=== PATIENT | female | born 1975 | race Hispanic/Latino ===

== ENCOUNTER 2018-08-14 15:23 | Emergency (ER) | payer OTHER ==
[2018-08-14] MEDS ORDERED: GEODON IM ONE (15:34)
[2018-08-14 15:42] LABS: Hematocrit 42.2 % (30.3-42.9); Hemoglobin 14.1 gm/dl (10.1-14.3); Mean Corpuscular HGB Conc 33 % (30-34); Mean Corpuscular Hemoglobin 30 pg (28-32); Mean Corpuscular Volume 90 fl (79-97); Platelet Count 463 K/mm3 (140-440); Red Blood Count 4.71 M/mm3 (3.65-5.03); Red Cell Distribution Width 14.4 % (13.2-15.2)
[2018-08-14 15:45] LABS: INR 0.95 (0.87-1.13); Partial Thromboplastin Time 24.6 Sec. (24.2-36.6); Thrombin Time 16.1 Sec. (15.1-19.6)
[2018-08-14 15:54] LABS: Calcium 8.9 mg/dL (8.4-10.2)
--- NOTE | 2018-08-14 16:28 | Emergency Department Report ---
HPI - General Time Seen by Provider: 08/14/18 15:30 - HPI HPI: 43-year-old female presents to the emergency department with a complaint of altered mental status. The patient's eventually came to the emergency department and his bedside and says that she went to take a nap earlier today. He came home from work and found the patient making some loud abnormal sounds, "like she was talking on the phone", but she was all contracted and/or clenched up and she had urinated and defecated on herself. says that he then called EMS and she was unresponsive since that time. She has a past medical history of hypertension. He says that she has been under a lot of stress lately. She has no history of seizures, CVA, NV. No drug or alcohol abuse history. The patient is a poor historian. She is currently awake but confused and agitated and not redirectable. ED Past Medical Hx - Medications Home Medications: Home Medications Medication Instructions Recorded Confirmed Last Taken Type hydroCHLOROthiazide 25 mg PO DAILY 08/14/18 08/14/18 Unknown History [Hydrochlorothiazide] ED Review of Systems ROS: Stated complaint: CVA Other details as noted in HPI Comment: Unobtainable due to pts medical conditions Physical Exam - Physical Exam Physical Exam: GENERAL: Patient is awake but refused an ill-appearing. HENT: Normocephalic. Atraumatic. Patient has moist mucous membranes. EYES: Extraocular motions are intact. Pupils equal reactive to light bilaterally. NECK: Supple. Trachea is midline. CHEST/LUNGS: Clear to auscultation. There is no respiratory distress noted. HEART/CARDIOVASCULAR: Regular. There is no tachycardia. There is no murmur. ABDOMEN: Abdomen is soft, nontender. Patient has normal bowel sounds. There is no abdominal distention. SKIN: Skin is warm and dry. NEURO: Patient is awake but confused. She is agitated and not following any commands and is not redirectable. GCS of 13. Patient says her name and keeps asking to get up out of the gurney. There is no slurred speech. No obvious facial asymmetry. MUSCULOSKELETAL: There is no tenderness or deformity. There is no limitation range of motion. There is no evidence of acute injury. ED Course - Reevaluation(s) Reevaluation #1: 10/02/18 17:01 As soon as the patient arrived to the emergency department she has been confused and agitated. She is consistently trying to get up out of the gurney but appears unstable with concerned that she will fall and injure herself. However she is not really directable. For this reason the patient was given some Geodon so that appropriate medical evaluation could be done. The patient' s showed up to bedside and tried to be a calming influence but it was not enough to get the CT scan done of the head which is part of the delay to rule out CVA in this patient. The patient was then given Ativan and Benadryl and she appears to be more appropriately sedated so we will attempt to get a CT scan and EKG on this patient. Reevaluation #2: 08/14/18 17:34 Despite the Geodon, Benadryl and Ativan given, we were not successful in a CT scan of the head. There are a few images available in which the patient is not moving and this has been sent to radiology. However the patient continues to be agitated and altered. She has been given ketamine and potentially will receive some more Ativan and we will reattempt to get CT imaging of the head done. Reevaluation #3: 08/14/18 17:[address] scan of the head was enough for radiology to read it showing a subarachnoid hemorrhage, predominantly on the right but also a little on the left side. Patient has been given some ketamine and appears to be resting comfortably at this time. I will be starting to contact other facilities with neurosurgery and neurology capabilities for transfer. - Consultations Consultation #1: I spoke with Dr. Laura, neurosurgery at [facility], who says he is going to talk to the charge nurse and try and free up a bed so that they can accept this patient for transfer. In the meantime he is going to look at the CT scan of the head on regional PACs. If no bed is available, we will try [facility]. 08/14/18 18:14 08/14/18 18:31 [facility] is still working on opening up a bed and does not have one for transfer at this time so I'm going to contact [facility]. 08/14/18 18:52 The patient was accepted for transfer to [facility] by Dr. Barry , neurosurgery. I also spoke with the neuro sliver handler, Dr. Camacho, who has requested that the patient receive 1 g of Keppra and either 1 g of TXA or 5 g of Amicar. ED Medical Decision Making - Lab Data Result diagrams: 08/14/18 15:19 08/14/18 15:19 - EKG Data -: EKG Interpreted by Me EKG shows normal: sinus rhythm (PACs), axis, intervals, QRS complexes, ST-T waves Rate: normal - EKG Data When compared to previous EKG there are: previous EKG unavailable Interpretation: normal EKG - Radiology Data Radiology results: report reviewed PROCEDURE: CT head without contrast. TECHNIQUE: Computerized tomography of the head was performed without contrast material. HISTORY: Stroke symptoms. COMPARISON: No prior studies are available for comparison. FINDINGS: Image quality is limited because of severe motion artifact. The patient was extremely combative according to the technologist. The ventricles are normal in size. There are no definite mass lesions. There is fairly extensive high attenuation within sulci and basilar cisterns. This is predominantly on the right side. This represents acute subarachnoid hemorrhage. There are no obvious aneurysms visible. The calvarium appears intact. The mastoid air cells and paranasal sinuses are clear as far as visualized. IMPRESSION: Acute subarachnoid hemorrhage. Very limited study. Transcribed By: MRM Dictated By: SIDNEY SAGE MD Electronically Authenticated By: SIDNEY SAGE MD Signed Date/Time: 08/14/18 1736 - Medical Decision Making This patient presents with altered mental status after being found confused, covered in her own vomitus, defecating on herself and urinating on herself and mostly unresponsive. The patient became more awake but still confused. She presents very agitated trying to get off of the gurney and is not redirectable. I was immediately concerned that the patient needed a CT scan of the head to look for signs of a brain bleed but the differential also included seizure with postictal state, substance abuse versus others. The patient was awake but very agitated and we were unable to establish an IV or get the patient calm enough to complete a CT scan of the head, which was imperative. The patient was given 20 mg of Geodon without much change in her status. She was given 2 mg of Ativan IV and 25 mg of Benadryl. At this point the patient started to show some improvement of her agitation with the medication and a CT scan was attempted. The patient once again became agitated while in CT scan and therefore it ended up being a poor limited study. However there were multiple slices that were done without much motion artifact and it was enough for radiology to make a read that showed subarachnoid hemorrhage. Patient was given some ketamine so that IV could be established and we could try to replace her potassium, give some IV fluid. Per the consultation section, I spoke with [facility] and then eventually with [facility] and the patient was accepted to go to [facility]. The patient's was updated regarding all of the labs, imaging, diagnosis and need for transfer and he understands and agrees to the plan. The patient once again became agitated and pulled out her IVs. As transportation arrived, we placed another IV, gave Keppra and TXA, and the patient was given 1 more dose of ketamine for her transportation to the hospital. The patient remains as a GCS of 13 throughout most of her ED stay and as she is leaving. Vital signs remained stable. - Differential Diagnosis brain bleed, seizure, substance abuse, psychosis Critical Care Time: Yes Critical care time in (mins) excluding proc time.: 75 Critical care attestation.: If time is entered above; I have spent that time in minutes in the direct care of this critically ill patient, excluding procedure time. Critical care time was spent on this patient during her initial evaluation, multiple re-evaluations , ordering and interpretation of labs and imaging, ordering and administration of medications, discussion with the neurosurgeon at [facility], discussion with the neurosurgeon and neuro critical care physician at [facility], discussion with the patient's . Critical Care Time: 75 minutes ED Disposition Clinical Impression: Subarachnoid hemorrhage, Hypokalemia Altered mental status Qualifiers: Altered mental status type: unspecified Qualified Code(s): R41.82 - Altered mental status, unspecified Disposition: DC/TX-70 ANOTHER TYPE HLTHCARE Is pt being admited?: No Condition: Serious Referrals: PRIMARY CARE, [Primary Care Provider] - 3-5 Days Forms: Accompanied Note Time of Disposition: 20:44
[2018-08-14] MEDS ORDERED: ATIVAN IV ONE (16:33)
[2018-08-14] MEDS ORDERED: BENADRYL IV ONE (16:34)
[2018-08-14 16:36] LABS: Basophils % (Manual) 0 % (0.0-1.8); Total Cells Counted 100
[2018-08-14] MEDS ORDERED: ATIVAN ONE (16:38)
[2018-08-14 16:48] LABS: Platelet Estimate Consistent w Auto; RBC Morphology Normal
[2018-08-14] MEDS ORDERED: KCL 10MEQ/100ML 10 MEQ/100 ML BAG IV SCH (17:00)
[2018-08-14] MEDS ORDERED: KETAMINE HCL IV ONE ×2 (17:28→19:29)
[2018-08-14] MEDS ORDERED: KETALAR IV ONE ×2 (17:30)
--- NOTE | 2018-08-14 17:37 | Cat Scan Report ---
FINAL REPORT PROCEDURE: CT head without contrast. TECHNIQUE: Computerized tomography of the head was performed without contrast material. HISTORY: Stroke symptoms. COMPARISON: No prior studies are available for comparison. FINDINGS: Image quality is limited because of severe motion artifact. The patient was extremely combative according to the technologist. The ventricles are normal in size. There are no definite mass lesions. There is fairly extensive high attenuation within sulci and basilar cisterns. This is predominantly on the right side. This represents acute subarachnoid hemorrhage. There are no obvious aneurysms visible. The calvarium appears intact. The mastoid air cells and paranasal sinuses are clear as far as visualized. IMPRESSION: Acute subarachnoid hemorrhage. Very limited study.
[2018-08-14 18:24] LABS: Bilirubin,Urine NEG (Negative); Blood,Urine SM (Negative); Color,Urine Straw (Yellow); Mucus,Urine FEW /HPF; Protein,Urine <15 mg/dL mg/dL (Negative); Urobilinogen,Urine < 2.0 mg/dL (<2.0)
[2018-08-14] MEDS ORDERED: NACL 0.9% 1000 ML 1,000 ML ONE (18:33)
[2018-08-14 18:34] LABS: Amphetamine Screen,Urine PRESUMPTIVE NEGATIVE; Benzodiazepines Screen,Urine PRESUMPTIVE NEGATIVE; Cocaine Screen,Urine PRESUMPTIVE NEGATIVE; Methadone Screen,Urine PRESUMPTIVE NEGATIVE; Opiate Screen,Urine PRESUMPTIVE NEGATIVE
[2018-08-14] MEDS ORDERED: KEPPRA 1,000 MG/NS 0.75% 100ML 1,000 MG/100 ML BAG IV ONE (18:42)
[2018-08-14] MEDS ORDERED: AMICAR 5,000 MG in NACL 0.9% 100 ML IV ONE (18:43)
[2018-08-14 18:48] LABS: Cannabinoid Screen,Urine PRESUMPTIVE POSITIVE
[2018-08-14 18:49] VITALS: BP 116/76
[2018-08-14] MEDS ORDERED: TRANEXAMIC ACID 1,000 MG in NACL 0.9% 100 ML IV NR (19:00)
== END 2018-08-14 19:50 | disposition other institution (70) ==
LOC: ED 15:23
DX: S06.6X0A Traumatic subarachnoid hemorrhage without loss of consciousness, initial encounter (principal); E87.6 Hypokalemia; I10 Essential (primary) hypertension; X58.XXXA Exposure to other specified factors, initial encounter; Y93.89 Activity, other specified; Y92.89 Other specified places as the place of occurrence of the external cause; Y99.8 Other external cause status
CPT/HCPCS: 36415; 70450; 80053; 80307; 81001; 84484; 84702; 85007; 85025; 85610; 85670; 85730; 86850; 86900; 86901; 93005; 93010; 96365; 96372; 96375; 96376; 99291; G0480; J1200; J1953; J2060; J3480; J3486; J7030; 80320

== ENCOUNTER 2018-12-18 12:15 | Emergency (ER) | payer SELFPAY ==
[2018-12-18 12:26] VITALS: BP 171/88
--- NOTE | 2018-12-18 12:34 | Emergency Department Report ---
Blank Doc - Documentation Documentation: 43 yo female pmh of HTN controlled with med presents with elevated BP started today while at work and was sent here from work. Denies cp,sob,dizziness,wisdom hx of Anuerysm last year august. EXAM: no acute distress no neuro deficit PLAN: fast track eval
--- NOTE | 2018-12-18 15:34 | Emergency Department Report ---
ED General Adult HPI - General Chief complaint: High BP Stated complaint: HBP/SOB Time Seen by Provider: 12/18/18 12:26 Source: patient Mode of arrival: Ambulatory Limitations: No Limitations - History of Present Illness Initial comments: She presents to the emergency department with a chief complaint elevated blood pressure. Patient states her blood pressure work was 150/102 and it was 177/88 in the emergency department. Patient denies any headache, chest pain, numbness, facial droop, slurred speech but is concerned because she is recovering from an aneurysm that happened in August. The patient is currently on hydrochlorothiazide which she takes daily. -: Gradual Severity scale (0 -10): 0 Improves with: none Worsens with: none Associated Symptoms: denies other symptoms Treatments Prior to Arrival: none - Related Data Home Medications Medication Instructions Recorded Confirmed Last Taken Apixaban [Eliquis] 5 mg PO BID 10/08/18 10/08/18 10/05/18 Cilostazol [Pletal] 100 mg PO BID 10/08/18 10/08/18 Unknown Metoprolol [Lopressor] 12.5 mg PO BID 10/08/18 10/08/18 10/05/18 Pravastatin Sodium [Pravachol] 40 mg PO HS 10/08/18 10/08/18 10/07/18 hydroCHLOROthiazide [HCTZ] 25 mg PO QDAY 10/08/18 10/08/18 10/08/18 levETIRAcetam [Keppra TAB] 1,000 mg PO Q12H 10/08/18 10/08/18 Unknown oxyCODONE [Roxicodone] 5 mg PO Q4HR PRN 10/08/18 10/08/18 Unknown Previous Rx's Medication Instructions Recorded Last Taken Type Amlodipine Besylate [Norvasc] 5 mg PO DAILY #30 tablet 12/18/18 Unknown Rx Allergies Allergy/AdvReac Type Severity Reaction Status Date / Time No Known Allergies Allergy Verified 12/18/18 12:24 ED Review of Systems ROS: Stated complaint: HBP/SOB Other details as noted in HPI Comment: All other systems reviewed and negative Constitutional: denies: chills, fever Eyes: denies: eye pain, eye discharge, vision change ENT: denies: ear pain, throat pain Respiratory: denies: cough, shortness of breath, wheezing Cardiovascular: denies: chest pain, palpitations Endocrine: no symptoms reported Gastrointestinal: denies: abdominal pain, nausea, diarrhea Genitourinary: denies: urgency, dysuria, discharge Musculoskeletal: denies: back pain, joint swelling, arthralgia Skin: denies: rash, lesions Neurological: denies: headache, weakness, paresthesias Psychiatric: denies: anxiety, depression Hematological/Lymphatic: denies: easy bleeding, easy bruising ED Past Medical Hx - Past Medical History Previous Medical History?: Yes Hx Hypertension: Yes Additional medical history: Acute Resp Failure r/t hypoxia,hypercapnia,cerebral edema,cerebrel salt-wasting,also Non-traumatic subarachoid herrohage r/t aneursym, RT DVT,TAK[place]SUBO CARDIOMYOPATHY- 08/14/2018, AFIB - Surgical History Past Surgical History?: Yes Additional Surgical History: BRAIN SURGERY- 08/14/2018 - Social History Smoking Status: Never Smoker Substance Use Type: None - Medications Home Medications: Home Medications Medication Instructions Recorded Confirmed Last Taken Type Apixaban [Eliquis] 5 mg PO BID 10/08/18 10/08/18 10/05/18 History Cilostazol [Pletal] 100 mg PO BID 10/08/18 10/08/18 Unknown History Metoprolol [Lopressor] 12.5 mg PO BID 10/08/18 10/08/18 10/05/18 History Pravastatin Sodium [Pravachol] 40 mg PO HS 10/08/18 10/08/18 10/07/18 History hydroCHLOROthiazide [HCTZ] 25 mg PO QDAY 10/08/18 10/08/18 10/08/18 History levETIRAcetam [Keppra TAB] 1,000 mg PO Q12H 10/08/18 10/08/18 Unknown History oxyCODONE [Roxicodone] 5 mg PO Q4HR PRN 10/08/18 10/08/18 Unknown History Amlodipine Besylate [Norvasc] 5 mg PO DAILY #30 tablet 12/18/18 Unknown Rx ED Physical Exam - General Limitations: No Limitations General appearance: alert, in no apparent distress - Head Head exam: Present: atraumatic, normocephalic - Eye Eye exam: Present: normal appearance, PERRL, EOMI - ENT ENT exam: Present: mucous membranes moist - Neck Neck exam: Present: normal inspection - Respiratory Respiratory exam: Present: normal lung sounds bilaterally. Absent: respiratory distress, wheezes, rales - Cardiovascular Cardiovascular Exam: Present: regular rate, normal rhythm. Absent: systolic murmur, diastolic murmur, rubs, gallop - GI/Abdominal GI/Abdominal exam: Present: soft, normal bowel sounds. Absent: distended, tenderness - Extremities Exam Extremities exam: Present: normal inspection - Back Exam Back exam: Present: normal inspection - Neurological Exam Neurological exam: Present: alert, oriented X3, CN II-XII intact. Absent: motor sensory deficit - Psychiatric Psychiatric exam: Present: normal affect, normal mood - Skin Skin exam: Present: warm, dry, intact, normal color. Absent: rash ED Course Vital Signs 12/18/18 12:24 Temperature 98.2 F Pulse Rate 79 Respiratory 16 Rate Blood Pressure 171/88 O2 Sat by Pulse 100 Oximetry ED Medical Decision Making - Medical Decision Making Discussed plan of care with patient Discussed with patient that she should take the Norvasc and hydrochlorothiazide and continue to monitor her pressures Critical care attestation.: If time is entered above; I have spent that time in minutes in the direct care of this critically ill patient, excluding procedure time. ED Disposition Clinical Impression: Hypertension Disposition: DC-01 TO HOME OR SELFCARE Is pt being admited?: No Does the pt Need Aspirin: No Condition: Stable Instructions: Hypertension (ED) Additional Instructions: return if worse Prescriptions: Amlodipine Besylate [Norvasc] 5 mg PO DAILY #30 tablet Referrals: KE YOU MD [Primary Care Provider] - 3-5 Days Time of Disposition: 15:34
== END 2018-12-18 15:43 | disposition home or self-care (01) ==
LOC: ED 12:15
DX: I10 Essential (primary) hypertension (principal)
CPT/HCPCS: 99281

== ENCOUNTER 2019-01-04 20:43 | Emergency (ER) | payer MEDICAID, OTHER ==
[2019-01-04] MEDS ORDERED: ASPIRIN PO ONE (21:46)
[2019-01-04 22:16] LABS: Basophils # (Auto) 0.1 K/mm3 (0.0-0.1); Basophils % (Auto) 0.9 % (0.0-1.8); Eosinophils # (Auto) 0.2 K/mm3 (0.0-0.4); Eosinophils % (Auto) 3.4 % (0.0-4.3); Hematocrit 34.9 % (30.3-42.9); Hemoglobin 11.8 gm/dl (10.1-14.3); Lymphocytes # (Auto) 2.2 K/mm3 (1.2-5.4); Lymphocytes % (Auto) 37.4 % (13.4-35.0); Mean Corpuscular HGB Conc 34 % (30-34); Mean Corpuscular Volume 83 fl (79-97); Monocytes # (Auto) 0.3 K/mm3 (0.0-0.8); Monocytes % (Auto) 5.8 % (0.0-7.3); Platelet Count 429 K/mm3 (140-440); Red Blood Count 4.22 M/mm3 (3.65-5.03); Red Cell Distribution Width 15.8 % (13.2-15.2)
[2019-01-04 22:55] LABS: BUN/Creatinine Ratio 12; Blood Urea Nitrogen 7 mg/dL (7-17); Calcium 9.7 mg/dL (8.4-10.2); Hemolysis Index 2
[2019-01-04] MEDS ORDERED: K-DUR PO ONE (23:19)
--- NOTE | 2019-01-04 23:21 | Emergency Department Report ---
HPI - General Chief Complaint: Chest Pain Time Seen by Provider: 01/04/19 22:40 - HPI HPI: 43-year-old -[place] female presents to the emergency department with complaint of some midsternal nonradiating chest pain/tightness that started around 6 PM. It was associated with some intermittent shortness of breath. She also said that her blood pressure was elevated at that time. She drank some water, ate a banana, drinks some hibiscus tea, and had some slight improvement. Patient says at one point her symptoms resolved but they came back slightly while she was waiting in the emergency department waiting room. She denies any tobacco or illicit drug use or abuse. 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 She has no lasting residual deficits from the CVA. She also has a previous history of DVT. Her primary care physician is Dr. Reena Dave. She does not have a underground foreman. No recent travel or sick contacts at home. ED Past Medical Hx - Past Medical History Previous Medical History?: Yes Hx Hypertension: Yes Hx CVA: Yes Additional medical history: Acute Resp Failure r/t hypoxia,hypercapnia,cerebral edema,cerebrel salt-wasting,also Non-traumatic subarachoid herrohage r/t aneursym, RT DVT,TAKOTSUBO CARDIOMYOPATHY- 08/14/2018, AFIB - Surgical History Past Surgical History?: Yes Additional Surgical History: BRAIN SURGERY- 08/14/2018 - Social History Smoking Status: Never Smoker Substance Use Type: None - Medications Home Medications: Home Medications Medication Instructions Recorded Confirmed Last Taken Type Apixaban [Eliquis] 5 mg PO BID 10/08/18 10/08/18 10/05/18 History Cilostazol [Pletal] 100 mg PO BID 10/08/18 10/08/18 Unknown History Metoprolol [Lopressor] 12.5 mg PO BID 10/08/18 10/08/18 10/05/18 History Pravastatin Sodium [Pravachol] 40 mg PO HS 10/08/18 10/08/18 10/07/18 History hydroCHLOROthiazide [HCTZ] 25 mg PO QDAY 10/08/18 10/08/18 10/08/18 History levETIRAcetam [Keppra TAB] 1,000 mg PO Q12H 10/08/18 10/08/18 Unknown History oxyCODONE [Roxicodone] 5 mg PO Q4HR PRN 10/08/18 10/08/18 Unknown History Amlodipine Besylate [Norvasc] 5 mg PO DAILY #30 tablet 12/18/18 Unknown Rx ED Review of Systems ROS: Stated complaint: WEAKNESS/CHEST TIGHTNESS Other details as noted in HPI Comment: All other systems reviewed and negative Constitutional: denies: chills, fever Eyes: denies: eye pain, vision change ENT: denies: ear pain, throat pain Respiratory: shortness of breath. denies: cough Cardiovascular: chest pain. denies: edema Gastrointestinal: denies: abdominal pain, vomiting Genitourinary: denies: dysuria, discharge Musculoskeletal: denies: back pain, arthralgia Skin: denies: rash, lesions Neurological: denies: headache, weakness Physical Exam - Physical Exam Vital Signs: Vital Signs 01/04/19 21:39 Temperature 98.7 F Pulse Rate 83 Respiratory 16 Rate Blood Pressure 164/101 O2 Sat by Pulse 100 Oximetry Physical Exam: GENERAL: The patient is well-developed well-nourished. HEENT: Normocephalic. Atraumatic. Patient has moist mucous membranes. EYES: Extraocular motions are intact. NECK: Supple. Trachea is midline. CHEST/LUNGS: Clear to auscultation. There is no respiratory distress noted. HEART/CARDIOVASCULAR: Regular. There is no tachycardia. There is no obvious murmur. ABDOMEN: Abdomen is soft, nontender. Patient has normal bowel sounds. There is no abdominal distention. SKIN: Skin is warm and dry. NEURO: The patient is awake, alert, and oriented. The patient is cooperative. The patient has no focal neurologic deficits. The patient has normal speech. MUSCULOSKELETAL: There is no tenderness or deformity. There is no evidence of acute injury. ED Course Vital Signs 01/04/19 21:39 Temperature 98.7 F Pulse Rate 83 Respiratory 16 Rate Blood Pressure 164/101 O2 Sat by Pulse 100 Oximetry ED Medical Decision Making - Lab Data Result diagrams: 01/04/19 21:49 01/04/19 21:49 - EKG Data -: EKG Interpreted by Ar EKG shows normal: sinus rhythm, axis, intervals, QRS complexes, ST-T waves Rate: normal - EKG Data When compared to previous EKG there are: previous EKG unavailable Interpretation: normal EKG - Radiology Data Radiology results: report reviewed, image reviewed interpreted by me: Chest x-ray does not show any pneumothorax, pleural effusion, pneumonia or obvious focal consolidation. PROCEDURE: CT ANGIO CHEST TECHNIQUE: Computerized tomographic angiography of the chest was performed after the IV injection of iodinated nonionic contrast including image processing. The image data was postprocessed using 2- dimensional multiplanar reformatted (MPR) and 3-dimensional (MIP and/or volume rendered) techniques. HISTORY: CP, elevated dimer COMPARISON: No prior studies are available for comparison. FINDINGS: Heart and pericardium: Normal. Thoracic aorta: Normal. Pulmonary vasculature: Normal. Lymph nodes: No enlarged thoracic lymph nodes. Lungs: The lungs are expanded. There is a 6 millimeter calcified granuloma in the superior segment of the left lower lung. There are no infiltrates.. Pleural space: No effusion, thickening, or pneumothorax. Musculoskeletal structures: No significant abnormality. Upper abdominal structures: No significant abnormality. IMPRESSION: There is no pulmonary embolism. There is no thoracic aortic aneurysm or dissection. There is no acute lung disease. Transcribed By: CO Dictated By: ASHLEIGH ARCOS MD Electronically Authenticated By: ASHLEIGH ARCOS MD Signed Date/Time: 01/05/19 0138 - Medical Decision Making This patient presents to the emergency department with a complaint of some pain and tightness that has occurred about 2 times since this evening. EKG is normal without ST elevation AK, ischemia or dysrhythmia. Chest x-ray did not show any pleural effusions, pneumothorax, pneumonia, focal consolidation, or any other acute process. Patient's labs have been unremarkable including negative troponins 2 but she did have a slightly elevated and equivocal d-dimer. For this reason a CT angiography of the chest was done that did not show any signs of any pulmonary embolism, dissection, aneurysm, or any other acute process. The patient was reevaluated multiple times over multiple hours and says that her chest pain had resolved and has not returned. She is low on the heart score criteria and low ALEKS score as well. For these reasons the patient appears safe for discharge home at this time but has been given a referral for cardiology for outpatient follow-up. She also has been instructed to return to the emergency d epartment immediately with any return of her chest pain or with any acute distress. She understands and agrees to the plans. - Differential Diagnosis costochondritis, GERD, AK, PE Critical Care Time: No Critical care attestation.: If time is entered above; I have spent that time in minutes in the direct care of this critically ill patient, excluding procedure time. ED Disposition Clinical Impression: Chest pain Qualifiers: Chest pain type: unspecified Qualified Code(s): R07.9 - Chest pain, unspecified Hypertension Qualifiers: Hypertension type: essential hypertension Qualified Code(s): I10 - Essential (primary) hypertension Disposition: TO HOME OR SELFCARE Is pt being admited?: No Condition: Stable Instructions: Chest Pain (ED), Hypertension (ED) Additional Instructions: Please follow-up with your primary care physician in the next few days. I am giving you a referral for a local underground foreman, Dr. Sawyer, to follow up regarding your previous chest pain. Return to the emergency department with any return of your chest pain, worsening of your symptoms, with any acute distress. Referrals: PEPE SAWYER MD [Staff Physician] - 2-3 Days Time of Disposition: 01:45 Heart Score - HEART Score History: Slightly suspicious EKG: Normal Age: < 45 Risk factors: 1-2 risk factors Troponin: < normal limit HEART Score: 1 - Critical Actions Critical Actions: 0-3 pts:0.9-1.7%risk of adverse cardiac event.Candidate for discharge ALEKS score - Aleks Score Age > 65: (0) No Aspirin use within the Past 7 Days: (0) No 3 or more CAD Risk Factors: (0) No 2 or more Angina events in past 24 hrs: (1) Yes Known CAD with more than 50% Stenosis: (0) No Elevated Cardiac Markers: (0) No ST Deviation Greater than 0.5mm: (0) No ALEKS Score: 1
--- NOTE | 2019-01-05 00:02 | XRay Report ---
FINAL REPORT PROCEDURE: Chest. TECHNIQUE: Portable AP view. HISTORY: Chest pain. COMPARISON: No prior studies are available for comparison. FINDINGS: The heart and mediastinum appear normal. The lungs are clear and well expanded. There are no pleural effusions. The soft tissues and regional skeleton are unremarkable. IMPRESSION: Negative portable chest.
[2019-01-05 01:32] VITALS: BP 158/89
--- NOTE | 2019-01-05 01:38 | Cat Scan Report ---
FINAL REPORT PROCEDURE: CT ANGIO CHEST TECHNIQUE: Computerized tomographic angiography of the chest was performed after the IV injection of iodinated nonionic contrast including image processing. The image data was postprocessed using 2-dim ensional multiplanar reformatted (MPR) and 3-dimensional (MIP and/or volume rendered) techniques. HISTORY: CP, elevated dimer COMPARISON: No prior studies are available for comparison. FINDINGS: Heart and pericardium: Normal. Thoracic aorta: Normal. Pulmonary vasculature: Normal. Lymph nodes: No enlarged thoracic lymph nodes. Lungs: The lungs are expanded. There is a 6 millimeter calcified granuloma in the superior segment of the left lower lung. There are no infiltrates.. Pleural space: No effusion, thickening, or pneumothorax. Musculoskeletal structures: No significant abnormality. Upper abdominal structures: No significant abnormality. IMPRESSION: There is no pulmonary embolism. There is no thoracic aortic aneurysm or dissection. There is no acute lung disease.
[2019-01-05] MEDS ORDERED: K-DUR PO ONE (02:11)
== END 2019-01-05 02:03 | disposition home or self-care (01) ==
LOC: ED 20:43
DX: R07.89 Other chest pain (principal); I10 Essential (primary) hypertension; Z86.73 Personal history of transient ischemic attack (TIA), and cerebral infarction without residual deficits
CPT/HCPCS: 36415; 71045; 71275; 80048; 84484; 84703; 85025; 85379; 93005; 93010; 99285; Q9967

== ENCOUNTER 2019-02-11 00:38 | Emergency (ER) | payer MEDICAID ==
[2019-02-11 00:58] VITALS: BP 150/99
[2019-02-11 01:31] LABS: Eosinophils # (Auto) 0.2 K/mm3 (0.0-0.4); Eosinophils % (Auto) 3.3 % (0.0-4.3); Hematocrit 36.5 % (30.3-42.9); Hemoglobin 12.3 gm/dl (10.1-14.3); Lymphocytes # (Auto) 1.8 K/mm3 (1.2-5.4); Lymphocytes % (Auto) 37.3 % (13.4-35.0); Mean Corpuscular HGB Conc 34 % (30-34); Mean Corpuscular Hemoglobin 29 pg (28-32); Mean Corpuscular Volume 85 fl (79-97); Monocytes # (Auto) 0.3 K/mm3 (0.0-0.8); Monocytes % (Auto) 6.6 % (0.0-7.3); Platelet Count 387 K/mm3 (140-440); Red Blood Count 4.29 M/mm3 (3.65-5.03); Red Cell Distribution Width 15.1 % (13.2-15.2)
[2019-02-11 01:48] LABS: BUN/Creatinine Ratio 15; Blood Urea Nitrogen 12 mg/dL (7-17); Calcium 9.5 mg/dL (8.4-10.2); Hemolysis Index 7
== END 2019-02-11 01:45 | disposition left against medical advice (07) ==
LOC: ED 00:38
DX: R06.02 Shortness of breath (principal); Z53.21 Procedure and treatment not carried out due to patient leaving prior to being seen by health care provider
CPT/HCPCS: 36415; 80048; 85025

== ENCOUNTER 2019-04-15 23:31 | Emergency (ER) | payer MEDICAID ==
[2019-04-16 00:58] LABS: Basophils % (Auto) 0.6 % (0.0-1.8); Eosinophils # (Auto) 0.2 K/mm3 (0.0-0.4); Eosinophils % (Auto) 3.1 % (0.0-4.3); Hematocrit 36.4 % (30.3-42.9); Hemoglobin 12.5 gm/dl (10.1-14.3); Lymphocytes # (Auto) 1.7 K/mm3 (1.2-5.4); Lymphocytes % (Auto) 28.1 % (13.4-35.0); Mean Corpuscular HGB Conc 34 % (30-34); Mean Corpuscular Volume 84 fl (79-97); Monocytes # (Auto) 0.4 K/mm3 (0.0-0.8); Monocytes % (Auto) 6.7 % (0.0-7.3); Platelet Count 367 K/mm3 (140-440); Red Blood Count 4.32 M/mm3 (3.65-5.03); Red Cell Distribution Width 14.6 % (13.2-15.2)
[2019-04-16 01:16] LABS: INR 0.97 (0.87-1.13)
[2019-04-16 01:17] LABS: Partial Thromboplastin Time 28.9 Sec. (24.2-36.6)
[2019-04-16 01:20] LABS: BUN/Creatinine Ratio 19; Blood Urea Nitrogen 13 mg/dL (7-17); Calcium 9.6 mg/dL (8.4-10.2); Hemolysis Index 21
[2019-04-16 01:42] VITALS: BP 133/78
--- NOTE | 2019-04-16 01:47 | Cat Scan Report ---
PROCEDURE: CT HEAD/BRAIN WO CON TECHNIQUE: Computerized tomography of the head was performed without contrast material. HISTORY: dizziness COMPARISONS: None . FINDINGS: Skull and scalp: Previous craniotomy right frontal and temporal region. No acute skull fracture. . Paranasal sinuses: Normal . Ventricles and subarachnoid spaces: Normal . Cerebrum: No evidence of hemorrhage, acute infarction or mass . Cerebellum and brainstem: No evidence of hemorrhage, acute infarction or mass . Vasculature: Normal . Other: None . ASPECTS: 10 IMPRESSION: There is no evidence of an acute intracranial process. There is been previous right fron yong and temporal craniotomy . This document is electronically signed by Isabela Rashid DO., April 16 2019 02:45:20 AM ET
--- NOTE | 2019-04-16 02:46 | Emergency Department Report ---
ED Dizziness HPI - General Chief Complaint: Dizziness Stated Complaint: LOW BLOOD PRESSURE Time Seen by Provider: 04/16/19 02:16 Source: patient, old records reviewed Mode of arrival: Ambulatory Limitations: No Limitations - History of Present Illness Initial Comments: 43-year-old female with a past medical history of subarachnoid hemorrhage secondary to ruptured aneurysm treated surgically without any deficit, hypertension, takotsubo cardiomyopathy, and a history of atrial fibrillation presents to the hospital with transient episode of lightheadedness and hypotension. Patient was sitting and watching TV and felt lightheaded. She took her blood pressure and it was 90/54. Patient denies headache, chest pain, blurred vision, diaphoresis, focal weakness, nausea, vomiting, shortness of breath, or abdominal pain. Patient persists to be R asymptomatic. She has been compliant with her blood pressure medication. - Related Data Home Medications Medication Instructions Recorded Confirmed Last Taken Apixaban [Eliquis] 5 mg PO BID 10/08/18 10/08/18 10/05/18 Cilostazol [Pletal] 100 mg PO BID 10/08/18 10/08/18 Unknown Metoprolol [Lopressor] 12.5 mg PO BID 10/08/18 10/08/18 10/05/18 Pravastatin Sodium [Pravachol] 40 mg PO HS 10/08/18 10/08/18 10/07/18 hydroCHLOROthiazide [HCTZ] 25 mg PO QDAY 10/08/18 10/08/18 10/08/18 levETIRAcetam [Keppra TAB] 1,000 mg PO Q12H 10/08/18 10/08/18 Unknown oxyCODONE [Roxicodone] 5 mg PO Q4HR PRN 10/08/18 10/08/18 Unknown Previous Rx's Medication Instructions Recorded Last Taken Type Amlodipine Besylate [Norvasc] 5 mg PO DAILY #30 tablet 12/18/18 Unknown Rx Allergies Allergy/AdvReac Type Severity Reaction Status Date / Time No Known Allergies Allergy Verified 12/18/18 12:24 ED Review of Systems ROS: Stated complaint: LOW BLOOD PRESSURE Other details as noted in HPI Comment: All other systems reviewed and negative ED Past Medical Hx - Past Medical History Previous Medical History?: Yes Hx Hypertension: Yes Hx CVA: Yes Additional medical history: Acute Resp Failure r/t hypoxia,hypercapnia,cerebral edema,cerebrel salt-wasting,also Non-traumatic subarachoid herrohage r/t aneursym, RT DVT,TAK[place]SUBO CARDIOMYOPATHY- 08/14/2018, AFIB - Surgical History Past Surgical History?: Yes Additional Surgical History: BRAIN SURGERY- 08/14/2018. - Social History Smoking Status: Never Smoker Substance Use Type: Marijuana - Medications Home Medications: Home Medications Medication Instructions Recorded Confirmed Last Taken Type Apixaban [Eliquis] 5 mg PO BID 10/08/18 10/08/18 10/05/18 History Cilostazol [Pletal] 100 mg PO BID 10/08/18 10/08/18 Unknown History Metoprolol [Lopressor] 12.5 mg PO BID 10/08/18 10/08/18 10/05/18 History Pravastatin Sodium [Pravachol] 40 mg PO HS 10/08/18 10/08/18 10/07/18 History hydroCHLOROthiazide [HCTZ] 25 mg PO QDAY 10/08/18 10/08/18 10/08/18 History levETIRAcetam [Keppra TAB] 1,000 mg PO Q12H 10/08/18 10/08/18 Unknown History oxyCODONE [Roxicodone] 5 mg PO Q4HR PRN 10/08/18 10/08/18 Unknown History Amlodipine Besylate [Norvasc] 5 mg PO DAILY #30 tablet 12/18/18 Unknown Rx ED Physical Exam - General Limitations: No Limitations - Other Other exam information: General: No limitations, patient is alert in no acute distress Head exam: Atraumatic, normocephalic Eyes exam: Normal appearance, pupils equal reactive to light, extraocular movements intact ENT: Moist mucous membrane Neck exam: Normal inspection, full range of motion, no meningismus nontender Respiratory exam: Clear to auscultation bilateral, no wheezes, rales, crackles Cardiovascular: Normal rate and rhythm, normal heart sounds Abdomen: Soft, nondistended, and nontender, with normal bowel sounds, no rebound, or guarding Extremity: Full range of motion normal inspection no deformity Back: Normal Inspection, full range of motion, no tenderness Neurologic: Alert, oriented x3, cranial nerves intact, no motor or sensory deficit Psychiatric: normal affect, normal mood Skin: Warm, dry, intact ED Course Vital Signs 04/15/19 04/16/19 04/16/19 23:34 01:19 01:41 Temperature 98.1 F Pulse Rate 84 Respiratory 18 Rate Blood Pressure 145/95 Blood Pressure 133/78 [Left] O2 Sat by Pulse 98 99 Oximetry ED Medical Decision Making - Lab Data Result diagrams: 04/16/19 00:28 04/16/19 00:28 Lab Results 04/16/19 04/16/19 04/16/19 Range/Units 00:28 00:28 00:28 WBC 5.9 (4.5-11.0) K/mm3 RBC 4.32 (3.65-5.03) M/mm3 Hgb 12.5 (10.1-14.3) gm/dl Hct 36.4 (30.3-42.9) % MCV 84 (79-97) fl MCH 29 (28-32) pg MCHC 34 (30-34) % RDW 14.6 (13.2-15.2) % Plt Count 367 (140-440) K/mm3 Lymph % (Auto) 28.1 (13.4-35.0) % Hill % (Auto) 6.7 (0.0-7.3) % Eos % (Auto) 3.1 (0.0-4.3) % Baso % (Auto) 0.6 (0.0-1.8) % Lymph # 1.7 (1.2-5.4) K/mm3 Hill # 0.4 (0.0-0.8) K/mm3 Eos # 0.2 (0.0-0.4) K/mm3 Baso # 0.0 (0.0-0.1) K/mm3 Seg Neutrophils % 61.5 (40.0-70.0) % Seg Neutrophils # 3.6 (1.8-7.7) K/mm3 PT 13.5 (12.2-14.9) Sec. INR 0.97 (0.87-1.13) APTT 28.9 (24.2-36.6) Sec. Sodium 137 (137-145) mmol/L Potassium 3.6 (3.6-5.0) mmol/L Chloride 98.1 (98-107) mmol/L Carbon Dioxide 26 (22-30) mmol/L Anion Gap 17 mmol/L BUN 13 (7-17) mg/dL Creatinine 0.7 (0.7-1.2) mg/dL Estimated GFR > 60 ml/min BUN/Creatinine Ratio 19 % Glucose 145 H (65-100) mg/dL Calcium 9.6 (8.4-10.2) mg/dL Troponin T < 0.010 (0.00-0.029) ng/mL HCG, Qual (Negative) 04/16/19 Range/Units 00:28 WBC (4.5-11.0) K/mm3 RBC (3.65-5.03) M/mm3 Hgb (10.1-14.3) gm/dl Hct (30.3-42.9) % MCV (79-97) fl MCH (28-32) pg MCHC (30-34) % RDW (13.2-15.2) % Plt Count (140-440) K/mm3 Lymph % (Auto) (13.4-35.0) % Hill % (Auto) (0.0-7.3) % Eos % (Auto) (0.0-4.3) % Baso % (Auto) (0.0-1.8) % Lymph # (1.2-5.4) K/mm3 Hill # (0.0-0.8) K/mm3 Eos # (0.0-0.4) K/mm3 Baso # (0.0-0.1) K/mm3 Seg Neutrophils % (40.0-70.0) % Seg Neutrophils # (1.8-7.7) K/mm3 PT (12.2-14.9) Sec. INR (0.87-1.13) APTT (24.2-36.6) Sec. Sodium (137-145) mmol/L Potassium (3.6-5.0) mmol/L Chloride (98-107) mmol/L Carbon Dioxide (22-30) mmol/L Anion Gap mmol/L BUN (7-17) mg/dL Creatinine (0.7-1.2) mg/dL Estimated GFR ml/min BUN/Creatinine Ratio % Glucose (65-100) mg/dL Calcium (8.4-10.2) mg/dL Troponin T (0.00-0.029) ng/mL HCG, Qual Negative (Negative) - EKG Data -: EKG Interpreted by Me EKG shows normal: sinus rhythm, axis (qrs 73), QRS complexes (qrsd 93), ST-T waves (no stemi) Rate: normal - Radiology Data Radiology results: report reviewed PROCEDURE: CT HEAD/BRAIN WO CON TECHNIQUE: Computerized tomography of the head was performed without contrast material. HISTORY: dizziness COMPARISONS: None . FINDINGS: Skull and scalp: Previous craniotomy right frontal and temporal region. No acute skull fracture. . Paranasal sinuses: Normal . Ventricles and subarachnoid spaces: Normal . Cerebrum: No evidence of hemorrhage, acute infarction or mass . Cerebellum and brainstem: No evidence of hemorrhage, acute infarction or mass . Vasculature: Normal . Other: None . ASPECTS: 10 IMPRESSION: There is no evidence of an acute intracranial process. There is been previous right frontal and temporal craniotomy . - Differential Diagnosis blood pressure cuff error, transient hypotension, anemia, vasovagal Critical Care Time: No Critical care attestation.: If time is entered above; I have spent that time in minutes in the direct care of this critically ill patient, excluding procedure time. ED Disposition Clinical Impression: Lightheadedness, Transient hypotension Disposition: DC-01 TO HOME OR SELFCARE Is pt being admited?: No Does the pt Need Aspirin: No Condition: Stable Instructions: Lightheadedness (ED) Additional Instructions: Take the medication as prescribed. Follow up with your doctor or the clinic/doctor provided. Return if symptoms worsen as indicated by your discharge instructions Referrals: MARIS PEREZ MD [Primary Care Provider] - 3-5 Days your, primary care doctor [Other] - 3-5 Days Time of Disposition: 02:47
== END 2019-04-16 03:02 | disposition home or self-care (01) ==
LOC: ED 23:31
DX: I95.89 Other hypotension (principal); R42 Dizziness and giddiness; I10 Essential (primary) hypertension; Z86.73 Personal history of transient ischemic attack (TIA), and cerebral infarction without residual deficits; F12.90 Cannabis use, unspecified, uncomplicated; Z79.899 Other long term (current) drug therapy
CPT/HCPCS: 36415; 70450; 80048; 84484; 84703; 85025; 85610; 85730; 93005; 93010; 99284